=== PATIENT | female | born 1990 | race Caucasian/White ===

== ENCOUNTER 2018-02-21 12:12 | Emergency (ER) | payer SELFPAY ==
[~2018-02-21] VITALS: Ht 160 cm; Wt 71.7 kg
[2018-02-21 12:37] VITALS: BP 119/50
[2018-02-21] MEDS ORDERED: CEPH500T PO (13:16)
[2018-02-21] MEDS ORDERED: MUPI22OI2 TP (13:16)
--- NOTE | 2018-02-21 15:24 | PHYS DOC ---
Past Medical History Past Medical History: No Pertinent History Past Surgical History: No Surgical History Alcohol Use: None Drug Use: None Adult General Chief Complaint Chief Complaint: SKIN RASH/ABSCESS HPI HPI Patient is a 27 year old female presenting with rash to her1 week of worsening itchy Allergies Allergies Allergies Coded Allergies Type Severity Reaction Last Updated Verified Sulfa (Sulfonamide Antibiotics) Allergy Unknown 02/21/18 Yes Physical Exam Physical Exam Constitutional: Well developed, well nourished, no acute distress, non-toxic appearance. [] HENT: Normocephalic, atraumatic, bilateral external ears normal, oropharynx moist, no oral exudates, nose normal. [] Eyes: PERRLA, EOMI, conjunctiva normal, no discharge. [] Pulmonary: Normal respiratory effort no increased work of breathing no obvious chest wall trauma Skin: Impetigo rash noted to the tip of the nose Neurologic: Alert and oriented X 3, normal motor function, normal sensory function, no focal deficits noted. [] Psychologic: Affect normal, judgement normal, mood normal. [] Current Patient Data Vital Signs Vital Signs Date Time Temp Pulse Resp B/P (MAP) Pulse Ox O2 Delivery O2 Flow Rate FiO2 02/21/18 12:37 98.2 68 16 119/50 (73) 95 Room Air 98.2 EKG EKG [] Radiology/Procedures Radiology/Procedures [] Course & Med Decision Making Course & Med Decision Making Pertinent Labs and Imaging studies reviewed. (See chart for details) 27-year-old female with impetigo treated as such. Dragon Disclaimer Dragon Disclaimer This electronic medical record was generated, in whole or in part, using a voice recognition dictation system. Departure Departure Impression: Primary Impression: Impetigo Disposition: 01 HOME, SELF-CARE Condition: STABLE Patient Instructions: Impetigo Scripts Cephalexin (CEPHALEXIN) 500 Mg Tablet 1 TAB PO TID, #21 TAB Prov: ROSARIO ROQUE MD 02/21/18 Mupirocin (MUPIROCIN OINTMENT) 22 Gm Oint...g. 1 GIN TP TID for WOUND CARE, #1 TUBE Prov: ROSARIO ROQUE MD 02/21/18 ROSARIO ROQUE MD Feb 21, 2018 15:24
== END 2018-02-21 13:32 | disposition home or self-care (01) ==
LOC: ER 12:12
DX: L01.09 Other impetigo (principal); Z88.2 Allergy status to sulfonamides
CPT/HCPCS: 99283